=== PATIENT | female | born 1950 ===

== ENCOUNTER 2017-11-30 07:11 | Day surgery (SDC) | payer OTHER ==
[~2017-11-30 07:11] MED LIST: ASA81 MG PO; CALTRATE 600+D1 EAC1 PO; CENTRUM ADULTS1 EACH PO; COLACE100 MG PO; LOTREL 10-20 M1 EACH PO
[2017-11-30] MEDS ORDERED: MACROBID 100 M100 MG PO (15:20)
[2017-11-30] MEDS ORDERED: ULTRACET PO (15:21)
== END 2017-11-30 18:40 | disposition home or self-care (01) ==
LOC: CIR.AMB 07:11
DX: N81.3 Complete uterovaginal prolapse (principal)